=== PATIENT | male | born 1960 | race Caucasian/White ===

== ENCOUNTER 2019-05-19 17:49 | Emergency (ER) | payer SELFPAY ==
[~2019-05-19] VITALS: Ht 175.3 cm; Wt 88.5 kg
[2019-05-19 17:49] VITALS: BP 177/100
--- NOTE | 2019-05-19 17:50 | NUR ---
PT TAKEN TO BED 7.
--- NOTE | 2019-05-19 18:00 | NUR ---
SAVITA FROM IN FRONT OF A [facility]. PER EMS, PT ADMITS TO DRINKING BEER, VINICIO ADAMES WAS ON SCENE. PT WITH INITIAL COMPLAINT OF MIDSTERNAL CP THAT HAS RESOLVED ON THE WAY HERE. PT DENIES ANY PAIN OR SOB AT THIS TIME. PATIENT STATES PAIN OF 0/10 AT THIS TIME; VSS; PATIENT POSITIONED FOR COMFORT; HOB ELEVATED; BEDRAILS UP X2; BED DOWN. ER MD MADE AWARE OF PT STATUS. PT IS ON MONITOR.
[2019-05-19] MEDS ORDERED: ASPIRIN 81 MG TAB.CHEW PO ONE (18:20)
[2019-05-19 18:51] LABS: BASOPHILS # (AUTO) 0.1 K/uL (0.00-0.22); BASOPHILS % (AUTO) 1.5 % (0.0-2.0); EOSINOPHILS # (AUTO) 0.1 K/uL (0-0.4); EOSINOPHILS % (AUTO) 1.6 % (0.0-4.0); HEMATOCRIT 46.3 % (36-52); HEMOGLOBIN 15.7 g/dL (12.0-18.0); LYMPHOCYTES # (AUTO) 1.4 K/uL (2.0-11.5); MEAN CORPUSCULAR HEMOGLOBIN 32 pg (27-31); MEAN CORPUSCULAR HGB CONC 34 g/dL (33-37); MEAN CORPUSCULAR VOLUME 93.4 fL (80-94); MONOCYTES # (AUTO) 0.7 K/uL (0.8-1.0); MONOCYTES % (AUTO) 11.4 % (1.7-9.3); NEUTROPHILS # (AUTO) 4.2 K/uL (1.8-7.7); NEUTROPHILS % (AUTO) 64.5 % (42.2-75.2); PLATELET COUNT (AUTO) 250 K/uL (140-450); RED BLOOD CELL COUNT(AUTO) 4.96 MIL/uL (4.20-6.10); WHITE BLOOD COUNT (AUTO) 6.5 K/uL (4.8-10.8)
--- NOTE | 2019-05-19 19:08 | NUR ---
PT IS RESTING IN BED WITH EYES OPENED. VSS.
--- NOTE | 2019-05-19 19:18 | NUR ---
Pt report given to WING Miller. Transfer of care at this time.
--- NOTE | 2019-05-19 19:23 | NUR ---
RECEIVED REPORT FROM WING GRESHAM. PT STABLE AT THIS TIME. STATES HE WANTS TO GO HOME. MADE AWARE, WAITING FOR LAB RESULTS.
[2019-05-19 19:30] LABS: CARBON DIOXIDE 26.9 mmol/L (21-32); CREATININE 0.7 mg/dL (0.7-1.3); POTASSIUM 3.9 mmol/L (3.5-5.1)
[2019-05-19 19:36] LABS: ALBUMIN 3.9 g/dL (3.4-5.0)
--- NOTE | 2019-05-19 19:36 | NUR ---
PATIENT ELOPED FROM FACILITY. DISCHARGE INSTRUCTIONS NOT GIVEN TO PATIENT. DR. GERMAN NOTIFIED. PT WAS INFORMED THAT WAS WAITING ON LAB RESULTS BEFORE D/C.
[2019-05-19 19:39] VITALS: BP 174/106
== END 2019-05-19 19:36 | disposition left against medical advice (07) ==
LOC: MED 17:49
DX: F10.129 Alcohol abuse with intoxication, unspecified (principal); R07.9 Chest pain, unspecified; I10 Essential (primary) hypertension
CPT/HCPCS: 36415; 71045; 80053; 84484; 85025; 93005; 99284; Q0092

== ENCOUNTER 2020-02-01 15:34 | Emergency (ER) | payer SELFPAY ==
[~2020-02-01] VITALS: Ht 175.3 cm; Wt 77.6 kg
--- NOTE | 2020-02-01 15:35 | NUR ---
AGUST[facility]N BARNEY ALS TO ER BED 09. RN EVALUATING AT BEDSIDE.
[2020-02-01 15:39] VITALS: BP 134/84
--- NOTE | 2020-02-01 15:46 | NUR ---
DR PHILLIPS EVALUATING PT AT BEDSIDE
--- NOTE | 2020-02-01 15:50 | NUR ---
59/M C/O CHEST PAIN X 3 DAYS. STARTED AFTER DOING PUSH UPS, PAIN SUBSIDES WITH REST. TODAY CP STARTED AFTER DRINKING 6-7 BEERS TODAY. DENIES ASSOCIATED SOB, N/V, DIZZINESS. DENIES CP AT THIS TIME. HX- DENIES NKA
--- NOTE | 2020-02-01 16:14 | NUR ---
PT AMB TO BATHROOM STEADY GAIT
--- NOTE | 2020-02-01 16:19 | NUR ---
EMERGENCY DEPARTMENT NURSE AT BEDSIDE FOR BLOOD DRAW
[2020-02-01 16:35] LABS: BASOPHILS # (AUTO) 0.2 K/uL (0.00-0.22); BASOPHILS % (AUTO) 2.1 % (0.0-2.0); EOSINOPHILS # (AUTO) 0.1 K/uL (0-0.4); EOSINOPHILS % (AUTO) 0.9 % (0.0-4.0); HEMOGLOBIN 13.7 g/dL (12.0-18.0); LYMPHOCYTES # (AUTO) 2.7 K/uL (2.0-11.5); LYMPHOCYTES % (AUTO) 34.7 % (20.5-51.1); MEAN CORPUSCULAR HEMOGLOBIN 31 pg (27-31); MEAN CORPUSCULAR HGB CONC 33 g/dL (33-37); MONOCYTES # (AUTO) 0.7 K/uL (0.8-1.0); MONOCYTES % (AUTO) 9.3 % (1.7-9.3); NEUTROPHILS # (AUTO) 4.1 K/uL (1.8-7.7); PLATELET COUNT (AUTO) 267 K/uL (140-450); RED BLOOD CELL COUNT(AUTO) 4.36 MIL/uL (4.20-6.10); RED CELL DISTRIBUTION WIDTH 15.2 % (11.6-13.7); WHITE BLOOD COUNT (AUTO) 7.8 K/uL (4.8-10.8)
--- NOTE | 2020-02-01 16:46 | NUR ---
DR PHILLIPS SPEAKING W/ PT AT BEDSIDE
[2020-02-01 16:49] LABS: ALBUMIN 2.5 g/dL (3.4-5.0); ANION GAP 13.6 (8-16); CARBON DIOXIDE 26.8 mmol/L (21-32); CREATININE 0.9 mg/dL (0.6-1.3); POTASSIUM 3.4 mmol/L (3.5-5.1); TOTAL BILIRUBIN 0.7 mg/dL (0.0-1.0)
[2020-02-01 17:10] VITALS: BP 124/72
--- NOTE | 2020-02-01 17:10 | NUR ---
PT WALKED OUT OF ER, DID NOT WAIT FOR D/C PAPERWORK
== END 2020-02-01 17:10 | disposition home or self-care (01) ==
LOC: MED 15:34
DX: R07.9 Chest pain, unspecified (principal); I10 Essential (primary) hypertension
CPT/HCPCS: 36415; 71045; 80053; 83880; 84484; 85025; 93005; 99285

== ENCOUNTER 2020-10-10 15:44 | Emergency (ER) | payer SELFPAY ==
[~2020-10-10] VITALS: Ht 162.6 cm; Wt 67.6 kg
--- NOTE | 2020-10-10 15:44 | NUR ---
PT BIBA FROM HOME AND PLACED IN BED 6.
[2020-10-10] MEDS ORDERED: LIDOCAINE/EPI 2% 1:100000 20 ML VIAL INJ ONE ×2 (15:51→15:55)
[2020-10-10 15:54] VITALS: BP 142/99
--- NOTE | 2020-10-10 15:57 | NUR ---
Dr. Barriga at bedside for placement of sutures on pt head.
--- NOTE | 2020-10-10 15:58 | NUR ---
see complete assessment.
--- NOTE | 2020-10-10 16:12 | NUR ---
s/w Luzma, from [facility]. . stated only to be seen for hematoma on head and that Hospice will arrange for transport back after d/c.
--- NOTE | 2020-10-10 16:44 | NUR ---
Dr. Barriga at bedside for laceration repair.
--- NOTE | 2020-10-10 17:01 | NUR ---
pt taken to CT.
[2020-10-10] MEDS ORDERED: KETOROLAC 30 MG/ML VIAL IM ONE (17:25)
[2020-10-10] MEDS ORDERED: NON ADHERENT DRESSING TP SCH (17:25)
[2020-10-10] MEDS ORDERED: BACITRACIN OINT 500 UNITS/GM PKT TP ONE (17:25)
[2020-10-10] MEDS ORDERED: BACI1PAC6 TP (17:57)
--- NOTE | 2020-10-10 18:39 | NUR ---
pt remains laying down in bed in semi fowlers position. pt a/o x 4, gcs 15. able to move all extremities. Does not appear to be in any distress. awaiting transport back to facility.
--- NOTE | 2020-10-10 18:43 | NUR ---
s/w Harriet from [facility] for an update of pt. report given. ETA for transport approximately [id number].
[2020-10-10 20:25] VITALS: BP 125/64
--- NOTE | 2020-10-10 20:31 | NUR ---
TRANSFERED/ DISCHARGED VIA BLS. ACI AND RX IN POSESSION WITH UNDERSTANDING EXPRESSED
== END 2020-10-10 20:25 ==
LOC: MED 15:44
DX: S01.01XA Laceration without foreign body of scalp, initial encounter (principal); S09.8XXA Other specified injuries of head, initial encounter; I10 Essential (primary) hypertension; Z87.448 Personal history of other diseases of urinary system; Z79.899 Other long term (current) drug therapy; W18.39XA Other fall on same level, initial encounter; Y93.89 Activity, other specified; Y92.89 Other specified places as the place of occurrence of the external cause; Y99.8 Other external cause status
CPT/HCPCS: 13121; 70450; 72125; 96372; 99285; J2001; 96374

== ENCOUNTER 2021-03-05 13:36 | Inpatient (IN) | payer OTHER, SELFPAY ==
[~2021-03-05] VITALS: Ht 175.3 cm; Wt 81.6 kg
[~2021-03-05 13:36] MED LIST: BACI1PAC6 TP; ROCURONIUM 50 MG/5 ML VIAL IV ONE; SEVOFLURANE 250 ML BTL INH ONE
[2021-03-05 13:37] VITALS: BP 149/106
[2021-03-05] MEDS ORDERED: MORPHINE SULFATE 4 MG/ML SYR IVP ONE (14:35)
[2021-03-05] MEDS ORDERED: NACL 0.9% 1,000 ML IV SCH (14:35)
[2021-03-05] MEDS ORDERED: ONDANSETRON 4 MG/2 ML VIAL IVP ONE (14:35)
[2021-03-05 15:06] LABS: BASOPHILS # (AUTO) 0.1 K/uL (0.00-0.22); BASOPHILS % (AUTO) 0.3 % (0.0-2.0); EOSINOPHILS % (AUTO) 0.1 % (0.0-4.0); HEMATOCRIT 47.5 % (36-52); LYMPHOCYTES # (AUTO) 1.2 K/uL (2.0-11.5); MEAN CORPUSCULAR HEMOGLOBIN 31 pg (27-31); MEAN CORPUSCULAR HGB CONC 34 g/dL (33-37); MEAN CORPUSCULAR VOLUME 91.1 fL (80-94); MONOCYTES # (AUTO) 1.4 K/uL (0.8-1.0); NEUTROPHILS # (AUTO) 14.4 K/uL (1.8-7.7); NEUTROPHILS % (AUTO) 84.6 % (42.2-75.2); PLATELET COUNT (AUTO) 307 K/uL (140-450); RED BLOOD CELL COUNT(AUTO) 5.22 MIL/uL (4.20-6.10); RED CELL DISTRIBUTION WIDTH 13.9 % (11.6-13.7); WHITE BLOOD COUNT (AUTO) 17.1 K/uL (4.8-10.8)
[2021-03-05 15:24] LABS: ALBUMIN 2.8 g/dL (3.4-5.0); ANION GAP 7.2 (8-16); CARBON DIOXIDE 35.9 mmol/L (21-32); CREATININE 1.3 mg/dL (0.6-1.3); POTASSIUM 4.1 mmol/L (3.5-5.1); TOTAL BILIRUBIN 1.2 mg/dL (0.0-1.0)
[2021-03-05] MEDS ORDERED: PIPERACILLIN/TAZOBACTAM 3.375 GM in DEXTROSE 5% 50 ML IV ONE (16:45)
[2021-03-05] MEDS ORDERED: LORazepam 2 MG/ML VIAL IVP PRN (17:25)
[2021-03-05] MEDS ORDERED: ONDANSETRON 4 MG/2 ML VIAL IVP PRN ×2 (17:25→21:20)
[2021-03-05] MEDS ORDERED: MORPHINE SULFATE 2 MG/ML SYR IVP PRN (17:25)
[2021-03-05 17:26] LABS: PROTHROMBIN TIME 10.3 secs (10.8-13.4)
[2021-03-05] MEDS ORDERED: PIPERACILLIN/TAZOBACTAM 3.375 GM VIAL IV ONE (17:54)
[2021-03-05 18:06] LABS: APPEARANCE,URINE HAZY (CLEAR); BILIRUBIN,URINE 2+ (NEGATIVE); BLOOD, URINE 2+ (NEGATIVE); COLOR,URINE ORANGE (YELLOW); LEUKOCYTE ESTERASE ,URINE NEGATIVE (NEGATIVE); NITRITE, URINE NEGATIVE (NEGATIVE); PH,URINE 5.5 (5.0-9.0); UGLUCOSE NEGATIVE (NEGATIVE)
[2021-03-05] MEDS: NACL 0.9% 1,000 ML IV SCH (18:13)
[2021-03-05] MEDS ORDERED: LIDOCAINE 1% 500 MG/50 ML VIAL ONE (20:11)
[2021-03-05] MEDS ORDERED: BUPIVACAINE-MPF/EPI 0.25% 30 ML VIAL INJ ONE (20:11)
[2021-03-05] MEDS ORDERED: ceFAZolin 1,000 MG VIAL ONE (20:12)
[2021-03-05] MEDS ORDERED: ETOMIDATE 20 MG/10 ML VIAL IVP ONE (20:59)
[2021-03-05] MEDS: PIPERACILLIN/TAZOBACTAM 3.375 GM in DEXTROSE 5% 50 ML IV SCH (21:00)
[2021-03-05] MEDS ORDERED: HYDROmorphone 1 MG/ML AMP IVP PRN (21:20)
[2021-03-05] MEDS ORDERED: ALBUMIN HUMAN 5 % 250 ML IV ONE ×2 (21:24→22:14)
[2021-03-05] MEDS ORDERED: ALBUMIN HUMAN 25% 100 ML IV ONE (21:57)
[2021-03-05] MEDS ORDERED: fentaNYL citrate 0.05 MG/ML VIAL ONE (22:28)
[2021-03-05] MEDS ORDERED: ACETAMINOPHEN 100 ML IV PRN (22:40)
[2021-03-05] MEDS ORDERED: fentaNYL citrate 0.05 MG/ML VIAL IVP PRN (22:40)
[2021-03-06] MEDS: NACL 0.9% 1,000 ML IV SCH ×3 (00:52→13:55)
[2021-03-06] MEDS ORDERED: PIPERACILLIN/TAZOBACTAM 3.375 GM VIAL IV ONE (05:44)
[2021-03-06] MEDS: PIPERACILLIN/TAZOBACTAM 3.375 GM in DEXTROSE 5% 50 ML IV SCH ×3 (05:55→20:45)
[2021-03-06 05:59] LABS: BASOPHILS # (AUTO) 0.1 K/uL (0.00-0.22); BASOPHILS % (AUTO) 0.6 % (0.0-2.0); EOSINOPHILS # (AUTO) 0.2 K/uL (0-0.4); EOSINOPHILS % (AUTO) 1.9 % (0.0-4.0); HEMATOCRIT 40.1 % (36-52); LYMPHOCYTES # (AUTO) 2.1 K/uL (2.0-11.5); LYMPHOCYTES % (AUTO) 18.8 % (20.5-51.1); MEAN CORPUSCULAR HEMOGLOBIN 31 pg (27-31); MEAN CORPUSCULAR HGB CONC 34 g/dL (33-37); MEAN CORPUSCULAR VOLUME 92.4 fL (80-94); MONOCYTES # (AUTO) 1.1 K/uL (0.8-1.0); MONOCYTES % (AUTO) 9.7 % (1.7-9.3); NEUTROPHILS # (AUTO) 7.8 K/uL (1.8-7.7); PLATELET COUNT (AUTO) 223 K/uL (140-450); RED BLOOD CELL COUNT(AUTO) 4.34 MIL/uL (4.20-6.10); RED CELL DISTRIBUTION WIDTH 13.7 % (11.6-13.7); WHITE BLOOD COUNT (AUTO) 11.3 K/uL (4.8-10.8)
[2021-03-06 06:06] LABS: HEMOGLOBIN 13.5 g/dL (12.0-18.0)
[2021-03-06 06:09] LABS: ALBUMIN 2.4 g/dL (3.4-5.0); ANION GAP 9.6 (8-16); CARBON DIOXIDE 26.5 mmol/L (21-32); CREATININE 1.1 mg/dL (0.6-1.3); MAGNESIUM 2.1 mg/dL (1.8-2.4); POTASSIUM 3.1 mmol/L (3.5-5.1); TOTAL BILIRUBIN 1.1 mg/dL (0.0-1.0)
[2021-03-06 08:00] VITALS: BP 108/77
[2021-03-06] MEDS: oxyCODONE 5 MG TAB PO PRN ×2 (08:07→15:42)
[2021-03-06] MEDS: ENOXAPARIN 40 MG/0.4 ML SYR SUBQ SCH (08:08)
[2021-03-06 12:00] VITALS: BP 115/69
[2021-03-06 16:00] VITALS: BP 140/97
[2021-03-06 20:00] VITALS: BP 107/71
[2021-03-07] VITALS: BP 115/73
[2021-03-07 04:00] VITALS: BP 109/69
[2021-03-07] MEDS: PIPERACILLIN/TAZOBACTAM 3.375 GM in DEXTROSE 5% 50 ML IV SCH ×2 (04:20→13:25)
[2021-03-07 05:48] LABS: BASOPHILS # (AUTO) 0.1 K/uL (0.00-0.22); BASOPHILS % (AUTO) 0.5 % (0.0-2.0); EOSINOPHILS # (AUTO) 0.2 K/uL (0-0.4); EOSINOPHILS % (AUTO) 2.1 % (0.0-4.0); HEMATOCRIT 41.8 % (36-52); HEMOGLOBIN 14.1 g/dL (12.0-18.0); LYMPHOCYTES # (AUTO) 1.3 K/uL (2.0-11.5); LYMPHOCYTES % (AUTO) 10.8 % (20.5-51.1); MEAN CORPUSCULAR HEMOGLOBIN 31 pg (27-31); MEAN CORPUSCULAR HGB CONC 34 g/dL (33-37); MEAN CORPUSCULAR VOLUME 91.7 fL (80-94); MONOCYTES # (AUTO) 1.2 K/uL (0.8-1.0); MONOCYTES % (AUTO) 10.4 % (1.7-9.3); NEUTROPHILS # (AUTO) 9.1 K/uL (1.8-7.7); NEUTROPHILS % (AUTO) 76.2 % (42.2-75.2); PLATELET COUNT (AUTO) 216 K/uL (140-450); RED BLOOD CELL COUNT(AUTO) 4.56 MIL/uL (4.20-6.10); RED CELL DISTRIBUTION WIDTH 13.5 % (11.6-13.7); WHITE BLOOD COUNT (AUTO) 11.9 K/uL (4.8-10.8)
[2021-03-07] MEDS: NACL 0.9% 1,000 ML IV SCH (06:05)
[2021-03-07 06:10] LABS: ALBUMIN 2.1 g/dL (3.4-5.0); ANION GAP 9.2 (8-16); CARBON DIOXIDE 25.8 mmol/L (21-32); CREATININE 1.1 mg/dL (0.6-1.3); TOTAL BILIRUBIN 1.1 mg/dL (0.0-1.0)
[2021-03-07 08:00] VITALS: BP 111/75
[2021-03-07] MEDS: ENOXAPARIN 40 MG/0.4 ML SYR SUBQ SCH (08:54)
[2021-03-07 12:00] VITALS: BP 132/74
[2021-03-07] MEDS ORDERED: HYDR-5080 PO (13:45)
[2021-03-07] MEDS ORDERED: ACET-8386 PO (13:50)
[2021-03-07 13:55] VITALS: BP 132/74
== END 2021-03-07 15:20 | disposition home health service (06) | DRG 227 ==
LOC: MED 13:36 → MTU 17:27
PROVIDERS: ADMIT Hospitalist; ATTEND Hospitalist
PROC: 0WQF0ZZ Repair Abdominal Wall, Open Approach (ICD-10-PCS; principal; 2021-03-05 20:30)
DX: K42.0 Umbilical hernia with obstruction, without gangrene (principal); R18.8 Other ascites; E44.0 Moderate protein-calorie malnutrition; K76.6 Portal hypertension; E86.0 Dehydration; K74.60 Unspecified cirrhosis of liver; I10 Essential (primary) hypertension; Z20.822 Contact with and (suspected) exposure to COVID-19; Z68.26 Body mass index [BMI] 26.0-26.9, adult; Z79.899 Other long term (current) drug therapy
CPT/HCPCS: 36415; 71045; 71250; 80053; 83690; 83735; 84484; 85025; 85610; 85730; 87040; 87081; 93005; 96361; 96365; 99285; J0690; J1650; J2001; J2270; J2405; J2543; J3010; J3490; J7030; J7060; P9041; P9046